=== PATIENT | female | born 1970 | race Two or more races ===

== ENCOUNTER 2018-09-01 17:50 | Emergency (ER) | payer MEDICAID ==
--- NOTE | 2018-09-19 12:33 | ER Physician Documentation ---
DATE OF SERVICE: 09/01/2018 The patient presents with a complaint of 3-day history of left shoulder pain. No history of trauma. No other remarkable symptoms. CHIEF COMPLAINT: Left shoulder pain. HISTORY OF PRESENT ILLNESS: Three-day history of left shoulder pain. No trauma. No other remarkable systems. REVIEW OF SYSTEMS: Positive for left shoulder pain. Negative for fever, chills, nausea, vomiting, diarrhea, constipation. PAST MEDICAL HISTORY: Unremarkable. PAST SURGICAL HISTORY: Unremarkable. PHYSICAL EXAMINATION: The patient has only 1 out of 3 rotator cuff signs positive. She was complaining about a lot of pain. A [employer] report was run on her. It was positive for previous opiate use but not recently. I ordered the patient a shot of 125 mg IM of Solu-Medrol and Toradol 60 mg IM. Physical exam revealed neurovascular exam intact. No evidence of compartment syndrome. There is no evidence of crepitance on exam. The patient babies her arm, but when was encouraged to walk her fingers up the wall in the forward and side manner, she was able to do so after the shots had kicked in. I did review her left shoulder x-ray prior to asking her to do these exercises of walking her fingers up the wall and pendulum exercises. I read the left shoulder out as negative. This is not consistent with any rotator cuff because the space was quite open. ASSESSMENT AND PLAN: Left shoulder pain with only 1 out of 3 rotator cuff signs positive. I believe this patient is developing an adhesive capsulitis or frozen shoulder. I told her that she needs to do pendulum exercises, which I showed her personally as well as walking the fingers up the schmidt in the front and side views. I did write her for pain medicine and I told her that she needs to follow up with her primary care doctor. I did give her a CD with the images on it and asked for them to refer her to an orthopedist. She should ask her primary care to do so. She really needs to do range of motion shoulder exercises. I also told her that she could use BenGay or Icy Hot and to not mix menthol creams with any warmth or else she could get secondary an. JOB# [id number] [facility]ie
== END 2018-09-01 19:01 | disposition home or self-care (01) ==
LOC: ER 17:50
DX: M25.512 Pain in left shoulder (principal)
CPT/HCPCS: 99284; 96372 ×2; 81025; J1885; J2930; Z7502